=== PATIENT | female | born 1960 | race Caucasian/White ===

== ENCOUNTER 2021-02-18 09:59 | Outpatient (REF) | payer BC, SELFPAY ==
--- NOTE | ~2021-02-18 | MM_ITS ---
EXAMINATION: MM SCREENING DIGITAL BREAST TOMOSYNTHESIS, BILATERAL CLINICAL INFORMATION: Screening. Asymptomatic. The lifetime risk of breast cancer based on the Tyrer-Cuzick Model is 9%. COMPARISON: Mammography: 11/04/2019, 09/24/2018, 09/16/2016 TECHNIQUE: Digital breast tomosynthesis is performed in both the craniocaudal and mediolateral oblique views along with computer-aided detection (CAD). Synthesized 2D images are generated from the tomosynthesis. FINDINGS: There are scattered areas of fibroglandular density (ACR BI-RADS breast composition Category b). There are no significant masses, abnormal calcifications, or other abnormalities. There are no significant changes. MM/MM tomosynthesis screening BI IMPRESSION: No mammographic evidence of malignancy. ASSESSMENT: BI-RADS 1: Negative RECOMMENDATION: Routine annual mammography screening. This patient's information was entered into a reminder system with a target due date for their next mammogram.
== END 2021-02-18 10:00 | disposition home or self-care (01) ==
LOC: HO.MAMMO 09:59
PROVIDERS: Visit Provider Internal Medicine
DX: Z12.31 Encounter for screening mammogram for malignant neoplasm of breast (principal)
CPT/HCPCS: 77063; 77067

== ENCOUNTER 2022-03-05 14:30 | Outpatient (REF) | payer BC, SELFPAY ==
--- NOTE | ~2022-03-05 | MM_ITS ---
EXAMINATION: BONE DENSITOMETRY CLINICAL INDICATION: Menopausal. COMPARISON: None (current study represents initial baseline exam). TECHNIQUE: Using a [employer] DXA System (software version: 13.1) manufactured by [employer], dual-energy x-ray absorptiometry was performed of the lumbar spine and left hip. The images are of good technical quality. Summary results are attached. FINDINGS: AP SPINE L1-L3 (excluding L4): The data of L1-L4 has been changed to exclude the L4 vertebral body, because degenerative changes at this level may cause overestimation of lumbar spine density. BMD 1.188 g/cm2, Z-score 0.8, T-score 0.1, normal. LEFT FEMUR, NECK: BMD 0.799 g/cm2, Z-score -0.8, T-score -1.7, osteopenia. LEFT FEMUR, TOTAL: BMD 0.942 g/cm2, Z-score 0.0, T-score -0.5, normal. IDENTIFIED RISK FACTORS: Menopause, glucocorticoids (chronic). HISTORY OF FRACTURE: None listed. MEDICATIONS: Calcium supplements or multivitamin, vitamin D. MM/XR DEXA axial skeleton IMPRESSION: 1. DIAGNOSIS: Osteopenia based on the lowest T-score value of -1.7 in the femoral neck applying World Health Organization criteria. 2. 10-YEAR FRACTURE RISK PREDICTION, FRAX: Major osteoporotic fracture (clinical spine, forearm, hip or shoulder) 13.7%. Hip fracture 1.6%. 3. Treatment Recommendations: NOF guidelines recommend consideration for treatment in postmenopausal women and men age 50 and older presenting with the following: -A hip or vertebral (clinical or morphometric) fracture. -T-score less than or equal to -2.5 at the femoral neck or spine after appropriate evaluation to exclude secondary causes. -Low bone mass at the hip or spine and a 10-year fracture probability by FRAX of greater than or equal to 3% for hip fracture or greater than or equal to 20% for major osteoporotic fracture based on the [place] adapted WHO algorithm. 4. Other Recommendations: All treatment decisions require clinical judgment and consideration of individual patient factors, including patient preferences, comorbidities, previous drug use, risk factors not captured in the FRAX model (e.g. frailty, falls, vitamin D deficiency, increased bone turnover, interval significant decline in bone density) and possible under or overestimation of fracture risk by FRAX. Additional medical evaluation for secondary cause of low bone mineral density may be appropriate. FUTURE SCAN RECOMMENDATION: People with diagnosed cases of osteoporosis or at high risk for fracture should have regular bone mineral density tests. For patients eligible for Medicare, routine testing is allowed once every 2 years. The testing frequency can be increased to one year for patients who have rapidly progressing disease, those who are receiving or discontinuing medical therapy to restore bone mass, or have additional risk factors.
--- NOTE | ~2022-03-05 | MM_ITS ---
EXAMINATION: MM SCREENING DIGITAL BREAST TOMOSYNTHESIS, BILATERAL CLINICAL INFORMATION: Screening. Asymptomatic. The lifetime risk of breast cancer based on the Tyrer-Cuzick Model is 9%. COMPARISON: Mammography: 02/22/2021, 11/04/2019, 09/24/2018, 09/16/2016, 05/28/2015, 03/23/2014 TECHNIQUE: Digital breast tomosynthesis is performed in both the craniocaudal and mediolateral oblique views along with computer-aided detection (CAD). Synthesized 2D images are generated from the tomosynthesis. FINDINGS: There are scattered areas of fibroglandular density (ACR BI-RADS breast composition Category b). Parenchymal pattern is similar to prior studies. There is no developing density or significant mass. Benign parenchymal asymmetry mid upper right breast on MLO view is again seen with admixture of fibroglandular and benign fatty attenuation. There are scattered bilateral isolated and small groups of benign relatively coarse calcification. The axilla and skin contours are unremarkable. MM/MM tomosynthesis screening BI IMPRESSION: No significant changes from prior studies. ASSESSMENT: BI-RADS 2: Benign RECOMMENDATION: Routine annual mammography screening. This patient's information was entered into a reminder system with a target due date for their next mammogram.
== END 2022-03-05 14:31 | disposition home or self-care (01) ==
LOC: HO.MAMMO 14:30
PROVIDERS: PCP Internal Medicine; Visit Provider Internal Medicine
DX: Z12.31 Encounter for screening mammogram for malignant neoplasm of breast (principal); Z13.820 Encounter for screening for osteoporosis; Z78.0 Asymptomatic menopausal state
CPT/HCPCS: 77063; 77067; 77080

== ENCOUNTER 2022-03-07 15:31 | Outpatient (REF) | payer BC, SELFPAY ==
--- NOTE | ~2022-03-07 | XR_ITS ---
EXAMINATION: XR KNEE, LEFT CLINICAL INFORMATION: Left knee pain COMPARISON: None TECHNIQUE: 5 views of the left knee. FINDINGS: There is prominent osteoarthritis lateral patellofemoral joint with narrowing, subchondral sclerosis, and lateral spurring. There is mild lateralization of the patella. There are degenerative changes with spurring from the femoral condyles and tibial plateau without significant joint narrowing or visible erosive change or chondrocalcinosis. Mild sharpening medial tibial spine. There may be trace suprapatellar fluid. No significant effusion. Hoffa's fat pad appears normal. XR/XR knee LT 4V IMPRESSION: -Prominent osteoarthritis lateral patellofemoral joint with lateralization patella. -Osteophyte medial lateral knee joint compartments. -Probable trace suprapatellar fluid. No overt effusion.
== END 2022-03-07 15:32 | disposition home or self-care (01) ==
LOC: HO.XRAY 15:31
PROVIDERS: PCP Internal Medicine; Visit Provider Internal Medicine
DX: M25.562 Pain in left knee (principal)
CPT/HCPCS: 73564

== ENCOUNTER → 2023-05-13 12:15 | Outpatient (BNV) | payer BC, SELFPAY | PROVIDERS: Visit Provider Radiology Diagnostic Radiology | DX: Z12.31 Encounter for screening mammogram for malignant neoplasm of breast (principal) | CPT/HCPCS: 77063; 77067 ==

== ENCOUNTER 2023-05-13 12:16 | Outpatient (REF) | payer BC, SELFPAY ==
--- NOTE | ~2023-05-13 | MM_ITS ---
EXAMINATION: MM SCREENING DIGITAL BREAST TOMOSYNTHESIS, BILATERAL CLINICAL INFORMATION: Screening. Asymptomatic. COMPARISON: Mammography: This study is compared with prior exams dating back to 2019. TECHNIQUE: Digital breast tomosynthesis is performed in both the craniocaudal and mediolateral oblique views along with computer-aided detection (CAD). Synthesized 2D images are generated from the tomosynthesis. FINDINGS: There are scattered areas of fibroglandular density (ACR BI-RADS breast composition Category b). There are no significant masses, abnormal calcifications, or other abnormalities. There are unchanged, benign calcifications in the right breast. MM/MM tomosynthesis screening BI IMPRESSION: No mammographic evidence of malignancy. ASSESSMENT: BI-RADS BI-RADS 2 - Benign Findings RECOMMENDATION: Routine annual mammography screening. 1 year F/U This examination should not preclude the clinical evaluation of a suspicious palpable abnormality. This patient's information was entered into a reminder system with a target due date for their next mammogram.
== END 2023-05-13 12:17 | disposition home or self-care (01) ==
LOC: HO.MAMMO 12:16
PROVIDERS: Visit Provider Internal Medicine
DX: Z12.31 Encounter for screening mammogram for malignant neoplasm of breast (principal)
CPT/HCPCS: 77063; 77067

== ENCOUNTER → 2024-05-27 14:00 | Outpatient (BNV) | payer BC, SELFPAY | PROVIDERS: PCP Internal Medicine; Visit Provider Internal Medicine | DX: Z12.31 Encounter for screening mammogram for malignant neoplasm of breast (principal) | CPT/HCPCS: 77063; 77067 ==

== ENCOUNTER 2024-05-27 14:04 | Outpatient (REF) | payer BC, SELFPAY ==
--- NOTE | ~2024-05-27 | MM_ITS ---
EXAMINATION: MM SCREENING DIGITAL BREAST TOMOSYNTHESIS, BILATERAL CLINICAL INFORMATION: Screening. Asymptomatic. COMPARISON: Mammography: Comparison is made with available priors TECHNIQUE: Digital breast mammography with tomosynthesis is performed in both the craniocaudal and mediolateral oblique views along with computer-aided detection (CAD). FINDINGS: There are scattered areas of fibroglandular density (ACR BI-RADS breast composition Category b). Stable right breast calcifications. There are no significant masses, abnormal calcifications, or other abnormalities. MM/MM tomosynthesis screening BI IMPRESSION: No mammographic evidence of malignancy. ASSESSMENT: BI-RADS BI-RADS 2 - Benign Findings RECOMMENDATION: Routine annual mammography screening. 1 year F/U This examination should not preclude the clinical evaluation of a suspicious palpable abnormality. This patient's information was entered into a reminder system with a target due date for their next mammogram. Electronically signed by: Joana Kwan DO 06/09/2024 08:29 PM EDT
== END 2024-05-27 14:05 | disposition home or self-care (01) ==
LOC: HO.MAMMO 14:04
PROVIDERS: PCP Internal Medicine; Visit Provider Internal Medicine
DX: Z12.31 Encounter for screening mammogram for malignant neoplasm of breast (principal)
CPT/HCPCS: 77063; 77067

== ENCOUNTER 2025-06-02 14:26 | Outpatient (REF) | payer BC, SELFPAY ==
--- NOTE | ~2025-06-02 | MM_ITS ---
EXAMINATION: MM SCREENING DIGITAL BREAST TOMOSYNTHESIS, BILATERAL CLINICAL INFORMATION: Screening. Asymptomatic. COMPARISON: Mammography: Comparison is made with available priors TECHNIQUE: Digital breast mammography with tomosynthesis is performed in both the craniocaudal and mediolateral oblique views along with computer-aided detection (CAD). FINDINGS: There are scattered areas of fibroglandular density (ACR BI-RADS breast composition Category b). There are no significant masses, abnormal calcifications, or other abnormalities. MM/MM tomosynthesis screening BI IMPRESSION: No mammographic evidence of malignancy. ASSESSMENT: BI-RADS BI-RADS 1 - Negative RECOMMENDATION: Routine annual mammography screening. 1 year F/U This examination should not preclude the clinical evaluation of a suspicious palpable abnormality. This patient's information was entered into a reminder system with a target due date for their next mammogram. Electronically signed by: Joana Kwan DO 06/06/2025 01:10 PM EDT
--- OUTSIDE RECORDS SUMMARY | 2025-06-02 14:32 | XMS_ITS | Encounter Summary ---
Author Organization [facility] Address [address] [place] [address] [address] [place] [address] Phone Care Team Providers Care Clinical Admissions Manager Name Role Phone Anhtony Jimenez MD Primary Care Provider + [phone] Gema Carpenter MD Primary Care Provider [phone] Gema Carpenter MD Unavailable [phone] Encounter Details Date Type Department Care Team (Late st Contact Info) Description 07/15/2018 Procedure Pass OR Admitting Dept - Virtual Department [address] [place] [address] Social History Tobacco Use Types Packs/Day Years Used Date Smoking Tobacco: Never Smokeless Tobacco: Never Alcohol Use Standard Drinks/Week Comments Yes 7 (1 standard drink = 0.6 oz pur e alcohol) Comments No Sex and Gender Information Value Date Recorded Sex Assigned at Not on file Legal Sex Female 9:47 PM EDT Gender Identity Not on file Sexual Orientation Not on file documented as of this encounter Plan of Treatment Upcoming Encounters Date Type Department Care Team (Late st Contact Info) Description 06/30/2025 1:30 PM EDT Office Visit [facility] Medicine [address], [place] [id number] Gema Carpenter MD [address] [facility], [address] [place], [place] [id number] [email or web address] documented as of this encounter Visit Diagnoses Not on filedocumented in this encounter Care Teams Clinical Admissions Manager Relationship Specialty Start Date End Date Anthony Jimenez MD [address] [place] [id number] PCP - General 06/29/17 12/29/24 Gema Carpenter MD [address] [place] [id number] [email or web address] PCP - General Family Medicine 12/30/24 Gema Carpenter MD [address] [place] [phone] [email or web address] Insurance Assigned Provider 04/22/25 documented as of this encounter Additional Source Comments The information contained in this document represents components of the legal health record. It is not the complete legal health record.[facility]
--- OUTSIDE RECORDS SUMMARY | 2025-06-02 14:33 | XMS_ITS | Clinical Summary ---
Author Organization [facility] Address [address] [place] [phone] Phone Care Team Providers Care Child Protective Investigator Name Role Phone Gema Carpenter MD Primary Care Provider Gema Carpenter MD Unavailable Allergies Active Allergy Reactions Criticality Noted Date Comments Sulfa (Sulfonamide Antibiotics) Nausea and/or Vomiting 04/03/2014 Theophylline Other (See Comments) 04/03/2014 Racing heart, very jittery Tree Nuts Hives,Shortness Of Breath High 04/03/2014 Medications LORazepam (ATIVAN) 0.5 MG tablet Take 1 tablet by mouth nightly as needed. Active loratadine (CLARITIN) 10 mg tablet Take 1 tablet by mouth daily. Active fluticasone propionate (FLONASE) 50 mcg/actuation nasal spray daily as needed. 1 spray in each nostril Nasally Once a day Active TIOTROPIUM BROMIDE (SPIRIVA WITH HANDIHALER INHL) Inhalation as needed Active EPINEPHRINE (EPIPEN INJ) Active pyridoxine, vitamin B6, (B-6) 50 MG tablet Take 50 mg by mouth daily. Active KRILL OIL ORAL Take by mouth. Active CALCIUM-MAGNESI UM-ZINC ORAL Take by mouth. Ac tive flaxseed oil 1,000 mg Cap Take 1,000 mg by mouth daily. Active SAFFRON EXTRACT ORAL Take by mouth. Activ e albuterol 90 mcg/actuation inhaler Inhale 2 puffs into the lungs as needed for wheezing. 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 Discussed establishing with psychotherapist, she is interested in this. Resource provided to find community psychotherapist to establish with. Discussed should she be unable to find a community therapist can refer her to [facility] for bridge therapy. Did discuss pharmacotherapy with patient as well, she is not interested at this time. Encounter to establish care 12/30/2024 Assessment & Plan (12/30/2024 1:30 PM EDT): Here establish care HFM, prior records received MALENA provided for patient to obtain prior PCP records Screening lab work ordered, will get drawn nonfasting UTD on IZ UTD on mammogram UTD on cervical cancer screening Due for colonoscopy, referral to GI placed RTC in 6 months for CPE, sooner as needed Strain of sternocleidomastoid muscle 12/30/2024 Assessment & Plan (12/30/2024 1:30 PM EDT): Atraumatic tenderness of the left SCM at the proximal insertion. HEP provided for patient. No other concerning features on exam today. Follow-up if not improved. Hypertension 04/05/2018 Assessment & Plan (12/30/2024 1:26 PM EDT): Maintained on losartan 100 mg daily with blood pressure at goal today. Continue current regimen. Anxiety disorder 09/14/1979 Assessment & Plan (12/30/2024 1:27 PM EDT): She is prescribed lorazepam 0.5 mg as needed which she rarely uses. Can continue this regimen for now, emphasized importance of minimizing use of benzodiazepine to minimize risk of dementia. She understands and agrees. Prediabetes Assessment & Plan (12/30/2024 1:27 PM EDT): Last A1c of 6.4% per patient, will repeat today. Asthma Assessment & Plan (12/30/2024 1:19 PM EDT): Minimal asthma symptoms, maintained on tioptropium PRN. Continue current regimen. Resolved Problems Problem Noted Date Diagnosed Date Resolved Date Endometrial polyp 06/30/2018 08/26/2018 Overview (07/15/2018): Endometrial polyp seen at hysteroscopy and removed 07/15/2018 Assessment & Plan (07/15/2018 10:12 AM EDT): Endometrial polyp seen at hysteroscopy and removed 07/15/2018 Post-menopausal bleeding 04/05/2018 Overview (07/15/2018): 2017 had endometrial biopsy, which was benign. Second episode of light bleeding in 03/2018. Will proceed with SHG to exclude focal endometrial pathology. Endometrial polyp seen at hysteroscopy and removed 07/15/2018 Assessment & Plan (07/15/2018 10:11 AM EDT): Endometrial polyp seen at hysteroscopy and removed 07/15/2018 Encounters Date Type Department Care Team Description 03/20/2025 Refill [facility] [address] [place] [address] Gema Carpenter MD Medication Refill from Last 3 Months Immunizations Immunization Administration Dates Next Due COVID-19 Pfizer Comirnaty Vaccine 12+ 06/14/2023 INFLUENZA, SPLIT VIRUS, TRIVALENT PF 06/24/2024 Influenza Quadrivalent MDCK w/Preservative IM Influenza Quadrivalent Preservative Free IM 12/2021,06/24/2021 Influenza Quadrivalent w/ Preservative IM 2022 Pneumococcal conjugate PCV20 07/22/2024 RSV Vaccine (monovalent, adjuvanted) 09/19/2024 Tdap 09/29/2024 Zoster recombinant 07/08/2024,04/15/2024 Family History Medical History Relation Comments Hypertension Father Kidney cancer Father Stroke Father CV disease Maternal Grandfather Diabetes Maternal Grandfather Alcohol abuse Maternal Grandmother Bladder Cancer Mother Diabetes Mother Hypertension Mother Hypothyroidism Mother Hypertension Paternal Grandfather Kidney disease Paternal Grandfather Relation Status Comments Father Maternal Grandfather Maternal Grandmother Mother Paternal Grandfather Sister Alive Social History Tobacco Use Types Packs/Day Years Used Date Smoking Tobacco: Never Smokeless Tobacco: Never Alcohol Use Standard Drinks/Week Comments Yes 7 (1 standard drink = 0.6 oz pur e alcohol) Child or Family Care Answer Date Record ed Do you have problems with on e of the following making it difficult for you to work, study, or receive health care? No 12/25/2024 Education Answer Date Recorded Are you interested in help w ith more adult education (for example, completing high school, GED, job training, learning the [place]e language, technical skills, or developing parenting skills)? No 12/25/2024 Are you concerned about learning? Not on file 12/25/2024 No 12/25/2024 Yes 12/25/2024 Food Answer Date Recorded Within the past 6 months we worried whether our food would run out before we got money to buy more. Never True 12/25/2024 Within the past 6 months the food we bought just didn't last and we didn't have enough money to get more. Never True Residential Stability Answer Date Recor ded What is your housing situation today? I have jose goodman 12/25/2024 How many times have you move d in the past 12 months? Zero (I did not move) 12/25/2024 Paying for Meds Answer Date Recorded Do you have trouble paying for medicines? No 12/25/2024 Paying Utility Bills Answer Date Record ed Do you have trouble paying your heating or elect ricity bill? No 12/25/2024 Transportation Answer Date Recorded Has the lack of transportati on kept you from medical appointments or from getting medications? No 12/25/2024 Digital Access Answer Date Recorded No 12/25/2024 Yes 12/25/2024 Do you have reliable internet access at home? Ye s 12/25/2024 Do you have a device (e.g., phone, tablet, computer) with a working camera? Yes 12/25/2024 Intimate Partner Violence Answer Date R ecorded Denied Basic Needs Not on file 12/25/2024 In the past 12 months have y ou been in a relationship with a person who hurts, threatens, or tries to control you? No 12/25/2024 Worried food would run out Not on file 12/25 In the past 12 months have y ou been in a relationship with a person who hurts, threatens, or tries to control you? No 12/25/2024 Comments No Sex and Gender Information Value Date Recorded Sex Assigned at Not on file Legal Sex Female 9:47 PM EDT Gender Identity Not on file Sexual Orientation Not on file Last Filed Vital Signs Vital Sign Reading Time Taken Comments Blood Pressure 136/78 02/07/2025 1:51 PM EDT Pulse 91 02/07/2025 1:51 PM EDT Temperature 36.8 C (98.2 F) 02/07/2025 1:51 PM EDT Respiratory Rate 16 07/15/2018 1:31 PM EDT Oxygen Saturation 96% 02/07/2025 1:51 PM EDT Inhaled Oxygen Concentration - - Weight 85.5 kg (188 lb 6.4 oz) 01/16/2025 1:20 P M EDT Height 162.6 cm (5' 4.02 ) 01/16/2025 1:20 PM ED T Body Mass Index 32.32 01/16/2025 1:20 PM EDT Plan of Treatment Upcoming Encounters Date Type Department Care Team (Late st Contact Info) Description 06/30/2025 1:30 PM EDT Office Visit [facility] [address] [place] [address] Gema Carpenter MD [address] [place] [address], [address] [place] [address] [email or web address] Health Maintenance Due Date Last Done Comments LIPID PANEL 1960 COLOGUARD 2006 COLONOSCOPY 2006 COLORECTAL CANCER SCREENING 2006 FIT TEST 2006 FOBT 2006 SIGMOIDOSCOPY 2006 VIRTUAL COLONOSCOPY 2006 MAMMOGRAM 03/23/2016 03/23/2014 REPEAT PHQ 01/24/2025 12/25/2024, 12/25/2024 INFLUENZA VACCINE (#1) 2025 , 05/26/2023, 07/18/2022, Additional history exists BLOOD PRESSURE 08/10/2025 02/07/2025 DEPRESSION SCREENING 12/25/2025 12/25/2024, 12/26/19 CREATININE LEVEL 12/30/2025 12/30/2024 POTASSIUM LEVEL 12/30/2025 12/30/2024 PAP SMEAR 08/03/2027 08/03/2024, 03/26/2017 SCREENING FOR DIABETES 12/31/2027 12/30/2024, 2024 Adult Td,Tdap Booster 09/29/2034 09/29/2024 COVID-19 VACCINE Completed 05/20/2024, 09/2022, 03/02/2023, Additional history exists ZOSTER VACCINES Completed 07/08/2024, 04/15/2024 PNEUMOCOCCAL VACCINES (50+ years) Completed 07/22/2024 RSV VACCINE Completed 09/19/2024 HEPATITIS C SCREENING Completed 01/16/2025 HIV ONE-TIME SCREENING (18-65 YEARS) Completed 01/16/2025 SMOKING STATUS SCREENING (Once After 26 Yrs) Completed 02/20/2025 HEPATITIS A VACCINES Aged Out No long er eligible based on patient's age to complete this topic HIB VACCINES Aged Out No longer eligi ble based on patient's age to complete this topic MENINGOCOCCAL VACCINES (ACWY) Aged Out No longer eligible based on patient's age to complete this topic MENINGOCOCCAL VACCINES (B) Aged Out N o longer eligible based on patient's age to complete this topic Medical Devices Not on file Procedures Procedure Name Priority Date/Time Associated Diagnosis Comments HEPATITIS C VIRAL LOAD (PCR) Routine 01/16/2025 4:02 PM EDT Screening for human immunodeficiency virus COMPREHENSIVE METABOLIC PANEL Routine 12/30/2024 1:47 PM EDT Screening for condition PAP TEST Routine 08/03/2024 12:00 AM EST from Last 3 Months or Most Recently Relevant to Health Maintenance Results * Hepatitis C viral load (PCR) (01/16/2025 4:02 PM EDT) Pathologist [facility] HCV RNA DETECT/QNT Undetected Undetected IU/mL [facility] Comment: (NOTE) Result in log IU/mL is Undetected. ADDITIONAL INFORMATION The quantification range of this assay is 15 to 100,000,000 IU/mL (1.18 log to 8.00 log IU/mL). Testing was performed using the luis m HCV test ([employer] Blood (Blood) 01/16/2025 4:0 2 PM EDT 01/16/2025 4:06 PM EDT us Glennmindimatilda Miles CNP NON CULTURE MICROBIOLOGY Final Result [facility] [address] [place] [address] * (ABNORMAL) Comprehensive metabolic panel (12/30/2024 1:47 PM EDT) Pathologist [facility] SODIUM 139 133 - 146 mmol/L [facility] POTASSIUM 4.6 3.3 - 5.1 mmol/L [facility] CHLORIDE 102 96 - 108 mmol/L [facility] CO2 27 21 - 35 mmol/L [facility] BUN 14 6 - 19 mg/dL [facility] CREATININE 0.60 0.5 - 1.5 mg/dL [facility] GLUCOSE 123(H) 70 - 99 mg/dL [facility] ALBUMIN 4.4 3.9 - 4.8 g/dL [facility] TOTAL PROTEIN 7.1 6.5 - 8.0 g/dL [facility] CALCIUM 10.0 8.4 - 10.3 mg/dL [facility] ALKALINE PHOSPHATASE 111 39 - 117 U/L [facility] TOTAL BILIRUBIN 0.9 0.0 - 1.2 mg/dL [facility] AST 21 0 - 37 U/L [facility] ALT 17 0 - 40 U/L [facility] GLOBULIN 2.7 1 - 4.8 g/dL [facility] EGFR 101 >59 mL/min/1.7 3m2 [facility] Comment:Estimated glomerular filtration rate calculated using the CKD-EPI refit equation. ANION GAP 15 10 - 20 mmol/L [facility] Blood 12/30/2024 1:47 PM EDT 12/30/2024 1:50 PM EDT Gema Carpenter MD LAB BLOOD ORDERABLES Final Result [address] [address] * Pap Test (08/03/2024 12:00 AM EST) 08/03/2024 08/04/2024 9:2 4 AM EST Narrative SEE NARRATIVE - 08/08/2024 1:29 PM EST [address] [address] Technical Advisor: Sam Rodriguez MD [address] Cytology Report FINAL DIAGNOSIS A. PAP SMEAR (THIN PREP) CE: SPECIMEN ADEQUACY: Satisfactory for evaluation; transformation zone present. INTERPRETATION: NEGATIVE FOR INTRAEPITHELIAL LESION OR MALIGNANCY. This specimen was analyzed by the automated ThinPrep Imaging System ([employer] and the selected mendez were reviewed by a track surfacing machine operator. Electronically Signed Out By: JACY Tello(ASCP) The Pap test is a screening test primarily for squamous cancers and precursors and has associated false-negative and false-positive results. New technologies such as liquid-based preparations may decrease but will not eliminate all false-negative results. Regular sampling and follow-up of unexplained clinical signs and symptoms are recommended to minimize false negative results. PROCEDURES/ADDENDA HPV Testing (Requested) Ordered Date: 08/04/2024 A. PAP SMEAR (THIN PREP) CE: High-risk HPV Panel w/ extended genotyping NEG HPV 16-NEG HPV 18-NEG HPV 45-NEG HPV 33/58-NEG HPV 31-NEG HPV 56/59/66-NEG HPV 51-NEG HPV 52-NEG HPV 35/39/68-NEG Performed by real-time polymerase chain reaction (PCR) at [facility], [address] [place] [address], [place], [place] using the FDA-approved BD Onclarity9 HPV Assay with extended genotyping. Uses of the assay in scenarios other than those approved by the FDA should be considered off-label use. The accuracy and precision of this test for all other off-label specimen sources has been verified in the Cytopathology Laboratory of the [facility] and has not been cleared or approved by the U.S. Food and Drug Administration. Clinical correlation is advised. The assay assesses the E6/E7 DNA target and utilizes human beta globin as an internal control. Cytology and HPV testing are screening assays and should not be used as the sole means of detecting cancer. False-positives and false-negatives can occur. CLINICAL HISTORY Date of Last Menstrual Period: Not Provided Menstrual History: Post Menopausal Other Clinical Conditions: Screening Pap SPECIMEN SOURCE A: PAP SMEAR (THIN PREP) CE Patient Name: ABEBA HAGENIDI : 1960 (Age: 64) Sex: F Institution: [facility] Location: [facility] Date of Collection: 08/03/2024 Date of Reported: 08/08/2024 13:29 Results to: Ishmael Alvarado MD Ishmael Alvarado MD CYTOLOGY ORDERABLES Final Result SEE NARRATIVE from Last 3 Months or Most Recently Relevant to Health Maintenance [place] [address] [place] [address] [place] [address] [place] [address] [place] [address] [place] [address] [place] [address] [place] [address] [place] [address] Advance Directives For more information, please contact: [phone] (9AM - 5PM [facility], Thursday-Thursday) Documents on File Type Date Recorded Patient Percussion Instructor Expl anation Healthcare Proxy 07/16/2018 11:02 AM Care Teams Child Protective Investigator Relationship Specialty Start Date End Date Gema Carpenter MD [address] [place] [address], [facility] [address] [place] [address] [email or web address] - General Family Medicine 12/30/24 Gema Carpenter MD [address] [place] [address] [address] [place] [address] [email or web address] Assigned Provider 04/22/25 Additional Source Comments The information contained in this document represents components of the legal health record. It is not the complete legal health record.[facility]
== END 2025-06-02 14:27 | disposition home or self-care (01) ==
LOC: HO.MAMMO 14:26
PROVIDERS: PCP Student in an Organized Health Care Education/Training Program; Visit Provider Internal Medicine
DX: Z12.31 Encounter for screening mammogram for malignant neoplasm of breast (principal)
CPT/HCPCS: 77063; 77067

== ENCOUNTER → 2025-06-02 14:30 | Outpatient (BNV) | payer BC, SELFPAY | PROVIDERS: PCP Student in an Organized Health Care Education/Training Program; Visit Provider Internal Medicine | DX: Z12.31 Encounter for screening mammogram for malignant neoplasm of breast (principal) | CPT/HCPCS: 77063; 77067 ==